=== PATIENT | male | born 1955 | race Caucasian/White ===

== ENCOUNTER 2017-10-10 07:34 | Emergency (ER) | payer OTHER ==
[~2017-10-10] VITALS: Ht 185.4 cm; Wt 105.0 kg
[2017-10-10 07:39] VITALS: BP 157/81; PULSE 100; RESP 20; TEMP 99.1; O2SAT 97
--- NOTE | 2017-10-10 08:08 | PD ---
HPI Chief Complaint: Laceration/Skin Injury Time Seen by Provider: 07:46 Travel History International Travel<30 days: No Contact w/Intl Traveler<30days: No Traveled to known affect area: No History of Present Illness HPI 61-year-old male presents the ED for evaluation of laceration of the left leg. Sustained while the patient was at work. He states that he fell down onto a piece of pipe work with a lug not on the top. He denies history of MRSA. He has been ambulatory on the leg. Denies numbness, tingling, weakness, limitations range of motion of the extremity. States his last tetanus immunization was in April. Takes no daily medications. He is a current smoker. PFSH Past Medical History Cardiovascular Problems: Yes (HTN) Social History Tobacco Use: Yes Allergies-Medications (Allergen,Severity, Reaction): Coded Allergies: No Known Allergies (Verified Allergy, Unknown, 10/10/17) Reported Meds & Prescriptions Reported Meds & Active Scripts Active Ibuprofen 800 Mg Tab 800 Mg PO Q8H PRN Keflex (Cephalexin) 500 Mg Cap 500 Mg PO Q6H 7 Days Bactrim DS (Sulfamethoxazole-Trimethoprim) 800-160 Mg Tab 1 Tab PO BID Review of Systems Except as stated in HPI: all other systems reviewed are Neg Physical Exam Narrative GENERAL: Well-nourished, well-developed pleasant white male no acute distress. SKIN: Focused skin assessment warm/dry. 2 large, L-shaped lacerations of the left anterior lower leg. No active bleeding. No visible foreign body. HEAD: Normocephalic. EYES: No scleral icterus. No injection or drainage. NECK: Supple, trachea midline. No JVD or lymphadenopathy. CARDIOVASCULAR: Regular rate and rhythm without murmurs, gallops, or rubs. RESPIRATORY: Breath sounds equal bilaterally. No accessory muscle use. GASTROINTESTINAL: Abdomen soft, non-tender, nondistended. MUSCULOSKELETAL: No cyanosis, or edema. FOCUSED LEFT LOWER EXTREMITY EXAM: 2+ DP pulse. Patient retains full, active, painless ROM of the entire lower extremity. Neurovascularly intact distally. BACK: Nontender without obvious deformity. No CVA tenderness. Data Data Last Documented VS Vital Signs Date Time Temp Pulse Resp B/P (MAP) Pulse Ox O2 Delivery O2 Flow Rate FiO2 10/10/17 07:39 99.1 100 20 157/81 (106) 97 Orders Orders Ed Discharge Order (10/10/17 09:28) MDM Medical Decision Making Medical Screen Exam Complete: Yes Emergency Medical Condition: Yes Differential Diagnosis Laceration versus abrasion versus foreign body versus need for tetanus immunization versus other Narrative Course 61-year-old male presents the ED for evaluation of laceration of the left leg. He states that he fell down onto a piece of pipe work with a lug not on the top. Tetanus immunization UTD. Physical exam consistent with 2 lacerations of the left anterior valentine. Laceration repair x 2 was performed. Please see my procedure note for details. Patient was placed on prophylactic antibiotics. He was given detailed wound care instructions. He will follow-up with his primary care provider. He indicated understanding of the instructions and is agreeable to care plan. The patient is stable and discharged home. Procedures Procedure Narrative LACERATION LOCATION: Distal anterior left valentine LENGTH: 4 cm NUMBER OF STITCHES/RIRI: 6 REPAIR: The area of the laceration was prepped with Betadine and sterilely draped. The laceration was infiltrated with 1% the wound was copiously irrigated and explored without evidence of foreign body, tendon injury or neurovascular injury. The wound was closed using 4-0 Prolene. This was a single layer repair. A sterile dressing was applied. The patient was advised to keep the dressing clean and dry. Patient tolerated the procedure well. LACERATION LOCATION: Proximal anterior left valentine LENGTH: 12 cm stellate NUMBER OF STITCHES/RIRI: 16 REPAIR: The area of the laceration was prepped with Betadine and sterilely draped. The laceration was infiltrated with 1% light. The wound was copiously irrigated and explored without evidence of foreign body, tendon injury or neurovascular injury. The wound was closed using 4-0 Prolene. This was a single layer repair. A sterile dressing was applied. The patient was advised to keep the dressing clean and dry. Patient tolerated the procedure well. Diagnosis Primary Impression: Laceration of lower leg Qualified Codes: S81.812A - Laceration without foreign body, left lower leg, initial encounter Referrals: Primary Care Physician Additional Instructions: Rest, hydrate. Do not change the dressing for 2 days. After that you may shower normally. Do not submerge the wound. After bathing pat of wound dry. Allow the wound to air dry for 10-15 minutes. Apply a thin layer of antibiotic ointment and a clean, dry dressing. Take the antibiotics as they are prescribed, even if your symptoms resolved. 800 mg ibuprofen up to 3 times a day, as needed for pain. Elevate the extremity as possible. Suture removal in 7-10 days. Monitor for signs of infection as discussed. Follow-up with your primary care provider. Return to the ED for any urgent or emergent medical condition. Med/Other Pt SpecificInfo: Prescription(s) given Scripts Ibuprofen (Ibuprofen) 800 Mg Tab 800 MG PO Q8H Y for Pain/Inflammation, #15 TAB 0 Refills Prov: Belgica Paredes DO 10/10/17 Cephalexin (Keflex) 500 Mg Cap 500 MG PO Q6H for Infection for 7 Days, #28 CAP 0 Refills Prov: Belgica Paredes DO 10/10/17 Sulfamethoxazole-Trimethoprim (Bactrim DS) 800-160 Mg Tab 1 TAB PO BID for Infection, #14 TAB 0 Refills Prov: Belgica Paredes DO 10/10/17 Disposition: 01 DISCHARGE HOME Condition: Stable Ainsley Ornelas Oct 10, 2017 08:08
[2017-10-10] MEDS ORDERED: CEPH-460 PO (09:26)
[2017-10-10] MEDS ORDERED: IBUP1TAB7 PO (09:26)
[2017-10-10] MEDS ORDERED: BACT800T5 PO (09:26)
== END 2017-10-10 09:58 | disposition home or self-care (01) ==
LOC: NEPD 07:34
DX: S81.812A Laceration without foreign body, left lower leg, initial encounter (principal); I10 Essential (primary) hypertension; Z72.0 Tobacco use; W19.XXXA Unspecified fall, initial encounter; W22.8XXA Striking against or struck by other objects, initial encounter; Y99.0 Civilian activity done for income or pay
CPT/HCPCS: 12005